=== PATIENT | female | born 1955 | race Caucasian/White ===

== ENCOUNTER 2024-06-15 08:20 | Emergency (ER) | payer MEDICARE ==
[2024-06-15 08:32] VITALS: TEMP 97.6
[2024-06-15] MEDS: TORAdol 30 mg Injection IV ONE (08:55)
[2024-06-15] MEDS ORDERED: Sodium Chloride 0.9% 1000 ML 1,000 ML ONE (08:55)
[2024-06-15] MEDS: Sodium Chloride 0.9% 1000 ML 1,000 ML IV SCH (08:55)
[2024-06-15] MEDS ORDERED: TORAdol 30 mg Injection ONE (08:55)
--- NOTE | 2024-06-15 08:56 | ERPHSYRPT ---
- History of Present Illness Time Seen by Provider: 06/15/24 08:35 Source: patient Exam Limitations: no limitations Patient Subjective Stated Complaint: Pt states "I have these cysts on my belly and my groin hurts and I burn all over. I went to [facility] and they gave me an antibiotic and toradol. I just hurt." Triage Nursing Assessment: Pt presented alert and oriented x 3, skin pwd. Pt ambulates with an upright steady giat, able to speak in clear full sentences. Pt has two abscess on chest, one on right one on left, no drainaige noted. Physician History: 73-year-old female presents to our ED for evaluation of tender skin nodules below her breasts pain in her right groin area and weight loss. Patient's sympt oms started approximately a week ago. Symptoms have been progressive. Patient went to [facility] on Friday. She was started on doxycycline. And spite of taking the antibiotics as prescribed her pain has gotten progressively worse. There have been no interval improvement in the size of the nodules. The nodules are solid not cystic. They are exquisitely tender. No signs of infec tion. Patient's weight loss is unintentional. Symptoms are mild to moderate in intensity. Pain worse with palpation. Pain improved somewhat with rest. Patient denies a history of the same. No other systemic manifestations. No chest pain or shortness of breath. No nausea vomiting or diaphoresis. No fever. No diarrhea. No rash daughter at bedside. They voiced no other complaints or concerns at this time. Portions of this note were created with voice recognition technology. There may be grammatical, spelling, punctuation or sound alike errors Timing/Duration: day(s) (1 week) Severity: moderate Modifying Factors: Improves With: other (Palpation) Associated Symptoms: denies symptoms Allergies/Adverse Reactions: No Known Drug Allergies Allergy (Verified 06/15/24 08:32) Home Medications: Doxycycline Hyclate 100 mg [Vibramycin 100 MG] 100 mg PO BID 06/15/24 [History] Ketorolac Trometh 10 mg Tab [TORAdol 10 MG TABLET] 10 mg PO DAILY PRN 06/15/24 [History] Hx Tetanus, Diphtheria Vaccination/Date Given: No Hx Influenza Vaccination/Date Given: No Hx Pneumococcal Vaccination/Date Given: No Immunizations Up to Date: No Travel Risk - International Travel Have you traveled outside of the country in past 3 weeks: No - Emerging Infectious Disease Are you exhibiting symptoms associated with any current EIDs: No - Review of Systems Constitutional: No Symptoms, No Fever, No Chills Eyes: No Symptoms Ears, Nose, & Throat: No Symptoms Respiratory: No Symptoms, No Cough, No Dyspnea Cardiac: No Symptoms, No Chest Pain, No Edema, No Syncope Abdominal/Gastrointestinal: No Symptoms, No Abdominal Pain, No Nausea, No Vomiting, No Diarrhea Genitourinary Symptoms: No Symptoms, No Dysuria Musculoskeletal: No Symptoms, No Back Pain, No Neck Pain Skin: No Symptoms, No Rash Neurological: No Symptoms, No Dizziness, No Focal Weakness, No Sensory Changes Psychological: No Symptoms Endocrine: No Symptoms Hematologic/Lymphatic: No Symptoms Immunological/Allergic: No Symptoms All Other Systems: Reviewed and Negative - Past Medical History Pertinent Past Medical History: No - Past Surgical History Past Surgical History: No - Social History Smoking Status: Current every day smoker How long have you smoked: years Exposure to second hand smoke: Yes Drug Use: none - Social Determinants of Health Will the patient participate in the screening: Declined to provide - Nursing Vital Signs Nursing Vital Signs: Initial Vital Signs Temperature 97.6 F 06/15/24 08:28 Pulse Rate 101 H 06/15/24 08:28 Respiratory Rate 20 06/15/24 08:28 Blood Pressure 159/93 06/15/24 08:28 O2 Sat by Pulse Oximetry 95 06/15/24 08:28 Pain Scale Pain Intensity 0 - Physical Exam General Appearance: no apparent distress, alert Eye Exam: PERRL/EOMI, eyes nml inspection Ears, Nose, Throat Exam: normal ENT inspection, pharynx normal, moist mucous membranes Neck Exam: normal inspection, non-tender, supple, full range of motion Respiratory Exam: normal breath sounds, lungs clear, airway intact, No respiratory distress Cardiovascular Exam: regular rate/rhythm, normal heart sounds, normal peripheral pulses Gastrointestinal/Abdomen Exam: soft, normal bowel sounds, No tenderness, No mass Back Exam: normal inspection, normal range of motion, No CVA tenderness, No vertebral tenderness Extremity Exam: normal inspection, normal range of motion, pelvis stable Neurologic Exam: alert, oriented x 3, cooperative, normal mood/affect, nml cerebellar function, nml station & gait, sensation nml, No motor deficits Skin Exam: normal color, warm, dry, other (Tender skin nodules under breast. Patient also has tenderness and pain in her right pelvic area. Overlying soft tissue intact), No rash Lymphatic Exam: No adenopathy SpO2 Interpretation: normal SpO2: 95 O2 Delivery: Room Air - Course Nursing assessment & vital signs reviewed: Yes - CT Exams Chest CT Interpretation: Tele-radiologist Report (Lung nodules including a left 9 mm lung nodule with irregular margins. Right lung mass nondisplaced cortical fracture posterior vertebral body T6-T7 T7 fracture encroaches the spinal cord. Right 1 cm anterolateral wall mass) Abdomen/Pelvis CT Interpretation: Tele-radiologist Report (Liver lesions concerning for metastatic disease possibly originating from left kidney. Right iliac wing lytic lesion right posterior acetabular lesion.) Ordered Tests: Active Orders 24 hr Category Date Time Status IV Insertion STAT Care 06/15/24 08:47 Active ABDOMEN AND PELVIS W CONTRAST [CT] Stat Exams 06/15/24 08:48 Completed CHEST WITH CONTRAST [CT] Stat Exams 06/15/24 08:49 Completed CBC W DIFF Stat Lab 06/15/24 08:30 Completed CMP Stat Lab 06/15/24 08:30 Completed CULTURE,URINE Stat Lab 06/15/24 09:18 Received TROPONIN Q4H Lab 06/15/24 08:30 Completed TROPONIN Q4H Lab 06/15/24 13:00 Ordered TROPONIN Q4H Lab 06/15/24 17:00 Ordered UA W/RFX UR CULTURE Stat Lab 06/15/24 09:18 Completed Medication Summary Generic Name Dose Route Start Last Admin Trade Name Freq PRN Reason Stop Dose Admin Sodium Chloride 1,000 mls @ 100 mls/hr 06/15/24 09:00 06/15/24 08:55 Sodium Chloride 0.9% 1000 Ml IV 07/15/24 08:59 100 mls/hr .Q10H LEW Administration Discontinued Medications Generic Name Dose Route Start Last Admin Trade Name Freq PRN Reason Stop Dose Admin Ceftriaxone Sodium 1 gm in 100 mls @ 200 mls/hr 06/15/24 10:16 06/15/24 11:39 Rocephin 1 Gm / 100 Ml Nacl IV 06/15/24 10:45 Infused STAT ONE Infusion Ceftriaxone Sodium Confirm 06/15/24 10:22 Rocephin 1 Gm / 100 Ml Nacl Administered 06/15/24 10:23 Dose 1 gm in 100 mls @ ud IV .STK-MED ONE Ketorolac Tromethamine 30 mg 06/15/24 08:47 06/15/24 08:55 Ketorolac Tromethamine 30 Mg/Ml Inj IV 06/15/24 08:48 30 mg STAT ONE Administration Ketorolac Tromethamine Confirm 06/15/24 08:55 Ketorolac Tromethamine 30 Mg/Ml Inj Administered 06/15/24 08:56 Dose 30 mg .ROUTE .STK-MED ONE Lab/Rad Data: Laboratory Result Diagrams 06/15/24 08:30 06/15/24 08:30 Laboratory Results 06/15/24 06/15/24 06/15/24 Range/Units 09:18 08:30 08:30 WBC (3.98-10.04) x10^3/uL RBC (3.93-5.22) x10^6/uL Hgb (11.2-15.7) g/dL Hct (34.1-44.9) % MCV (79.4-94.8) fL MCH (25.6-32.2) pg MCHC (32.2-35.5) g/dL RDW (11.7-14.4) % Plt Count (182-369) x10^3/uL MPV (9.4-12.3) fL Gran % (34.0-71.1) % Immature Gran % (Auto) (0.001-0.429) % Nucleat RBC Rel Count (0.00-0.2) % Eos # (Auto) (0.04-0.36) x10^3/uL Immature Gran # (Auto) (0.001-0.031) x10^3u/L Absolute Lymphs (auto) (1.18-3.74) x10^3/uL Absolute Monos (auto) (0.24-0.86) x10^3/uL Absolute Nucleated RBC (0.00-0.012) x10^3u/L Lymphocytes % (19.3-51.7) % Monocytes % (4.7-12.5) % Eosinophils % (0.7-5.8) % Basophils % (0.1-1.2) % Absolute Granulocytes (1.56-6.13) x10^3/uL Basophils # (0.01-0.08) x10^3/uL Sodium 127 L (135-145) mmol/L Potassium 4.5 (3.5-5.1) mmol/L Chloride 93 L (98-107) mmol/L Carbon Dioxide 22 (22-30) mmol/L Anion Gap 15.6 H (5-15) MEQ/L BUN 14 (7-17) mg/dL Creatinine 0.65 (0.52-1.04) mg/dL Estimated GFR 94.7 ML/MIN Glucose 110 H (74-106) mg/dL Calcium 10.2 (8.4-10.2) mg/dL Total Bilirubin 0.60 (0.2-1.3) mg/dL AST 41 H (14-36) U/L ALT 47 H (0-35) U/L Alkaline Phosphatase 101 (38-126) U/L Troponin I < 0.012 (0.000-0.033) ng/mL Serum Total Protein 7.4 (6.3-8.2) g/dL Albumin 4.4 (3.5-5.0) g/dL Urine Color Yellow (Yellow) Urine Appearance Clear (Clear) Urine pH 5.5 (4.6-8.0) Ur Specific [place] 1.015 (1.005-1.030) Urine Protein Negative (Negative) Urine Glucose (UA) Negative (Negative) mg/dL Urine Ketones Trace A (Negative) Urine Blood Trace (Negative) Urine Nitrite Negative (Negative) Urine Bilirubin Negative (Negative) Urine Urobilinogen 0.2 (0.2) mg/dL Ur Leukocyte Esterase Moderate A (Negative) U Hyaline Cast (Auto) NONE SEEN (0-2) /LPF Urine Microscopic RBC 0-2 (0-5) /HPF Urine Microscopic WBC 21-50 A (0-5) /HPF Ur Epithelial Cells Few (None Seen) /HPF Urine Bacteria None Seen (None Seen) /HPF Urine Culture Reflexed YES (NO) 06/15/24 Range/Units 08:30 WBC 15.3 H (3.98-10.04) x10^3/uL RBC 4.12 (3.93-5.22) x10^6/uL Hgb 12.5 (11.2-15.7) g/dL Hct 36.7 (34.1-44.9) % MCV 89.1 (79.4-94.8) fL MCH 30.3 (25.6-32.2) pg MCHC 34.1 (32.2-35.5) g/dL RDW 13.0 (11.7-14.4) % Plt Count 480 H (182-369) x10^3/uL MPV 8.7 L (9.4-12.3) fL Gran % 68.6 (34.0-71.1) % Immature Gran % (Auto) 0.5 H (0.001-0.429) % Nucleat RBC Rel Count 0.0 (0.00-0.2) % Eos # (Auto) 1.64 H (0.04-0.36) x10^3/uL Immature Gran # (Auto) 0.08 H (0.001-0.031) x10^3u/L Absolute Lymphs (auto) 2.19 (1.18-3.74) x10^3/uL Absolute Monos (auto) 0.85 (0.24-0.86) x10^3/uL Absolute Nucleated RBC 0.00 (0.00-0.012) x10^3u/L Lymphocytes % 14.3 L (19.3-51.7) % Monocytes % 5.6 (4.7-12.5) % Eosinophils % 10.7 H (0.7-5.8) % Basophils % 0.3 (0.1-1.2) % Absolute Granulocytes 10.47 H (1.56-6.13) x10^3/uL Basophils # 0.04 (0.01-0.08) x10^3/uL Sodium (135-145) mmol/L Potassium (3.5-5.1) mmol/L Chloride (98-107) mmol/L Carbon Dioxide (22-30) mmol/L Anion Gap (5-15) MEQ/L BUN (7-17) mg/dL Creatinine (0.52-1.04) mg/dL Estimated GFR ML/MIN Glucose (74-106) mg/dL Calcium (8.4-10.2) mg/dL Total Bilirubin (0.2-1.3) mg/dL AST (14-36) U/L ALT (0-35) U/L Alkaline Phosphatase (38-126) U/L Troponin I (0.000-0.033) ng/mL Serum Total Protein (6.3-8.2) g/dL Albumin (3.5-5.0) g/dL Urine Color (Yellow) Urine Appearance (Clear) Urine pH (4.6-8.0) Ur Specific [place] (1.005-1.030) Urine Protein (Negative) Urine Glucose (UA) (Negative) mg/dL Urine Ketones (Negative) Urine Blood (Negative) Urine Nitrite (Negative) Urine Bilirubin (Negative) Urine Urobilinogen (0.2) mg/dL Ur Leukocyte Esterase (Negative) U Hyaline Cast (Auto) (0-2) /LPF Urine Microscopic RBC (0-5) /HPF Urine Microscopic WBC (0-5) /HPF Ur Epithelial Cells (None Seen) /HPF Urine Bacteria (None Seen) /HPF Urine Culture Reflexed (NO) - Progress Progress: improved Progress Note: Spoke to ER physician at [facility] who accepts transfer at 12:25 PM. 06/15/24 12:26 6-year-old female presents emergency department for evaluation of skin nodules as well as pain to her lower abdominal area. Workup reveals a urinary tract inf ection. Patient received a dose of Rocephin in our ED. Hyponatremia observed on the workup as well. IV fluids infused. CT scan of chest abdomen and pelvis revealed metastatic disease. Primary is unclear. Patient will be transferred to [facility] for higher level of care. Plan of care discussed with patient. She agrees to transfer to [facility] for further evaluation and treatment. Patient reassessed. Pain well-controlled. Portions of this note were created with voice recognition technology. There may be grammatical, spelling, punctuation or sound alike errors Complexity of problem addressed is moderate acute complicated no critical care time. Complexity of data reviewed analyzes extensive. Test ordered chest reviewed results analyzed and correlated clinically with history and physical exam. Risk of complication at or risk of morbidity/mortality of patient m anagement is high. Patient requires transfer to higher level of care. Vital stable. Time spent to transfer patient is approximately 15 minutes. Plan of care established for shared decision making. No social determinants of health present to impede follow-up. Portions of this note were created with voice recognition technology. There may be grammatical, spelling, punctuation or sound alike errors 06/15/24 12:32 Counseled pt/family regarding: lab results, diagnosis, rad results - Departure Departure Disposition: Transfer Clinical Impression: Leukocytosis, Thrombocytosis, Hyponatremia, UTI (urinary tract infection), Metastatic cancer, Unintentional weight loss Condition: Stable Critical Care Time: No Referrals: DOCTOR,NO FAMILY [Primary Care Provider] - Follow up/PCP as directed
[2024-06-15 09:03] LABS: Absolute Neutrophil Ct (ANC) 10.47 x10^3/uL (1.56-6.13); BASOPHIL % 0.3 % (0.1-1.2); Basophil (Absolute #) 0.04 x10^3/uL (0.01-0.08); Eosinophil % 10.7 % (0.7-5.8); Eosinophil (Absolute #) 1.64 x10^3/uL (0.04-0.36); Hematocrit 36.7 % (34.1-44.9); Hemoglobin 12.5 g/dL (11.2-15.7); IMMATURE GRAN # 0.08 x10^3u/L (0.001-0.031); IMMATURE GRAN % 0.5 % (0.001-0.429); Lymphocyte (Absolute #) 2.19 x10^3/uL (1.18-3.74); Lymphocytes % 14.3 % (19.3-51.7); Mean Cell Volume 89.1 fL (79.4-94.8); Mean Corpuscular Hemoglobin 30.3 pg (25.6-32.2); Mean Corpuscular Hgb Concent. 34.1 g/dL (32.2-35.5); Mean Platelet Volume 8.7 fL (9.4-12.3); Monocyte (Absolute #) 0.85 x10^3/uL (0.24-0.86); Monocytes % 5.6 % (4.7-12.5); Neutrophil % 68.6 % (34.0-71.1); Platelet Count 480 x10^3/uL (182-369); Red Blood Count 4.12 x10^6/uL (3.93-5.22); White Blood Count 15.3 x10^3/uL (3.98-10.04)
[2024-06-15 09:20] LABS: ALBUMIN 4.4 g/dL (3.5-5.0); ANION GAP 15.6 MEQ/L (5-15); BILIRUBIN,TOTAL 0.6 mg/dL (0.2-1.3); Calcium 10.2 mg/dL (8.4-10.2); Creatinine 1 0.65 mg/dL (0.52-1.04); EST GLOMERULAR FILTRATION RATE 94.7 ML/MIN; Potassium 4.5 mmol/L (3.5-5.1); Total Protein 7.4 g/dL (6.3-8.2)
[2024-06-15 09:30] LABS: Appearance Clear (Clear); Bacteria None Seen /HPF (None Seen); Bilirubin Negative (Negative); Blood Trace (Negative); Epithelial Cells Few /HPF (None Seen); Glucose, Urine Negative (Negative); Hyaline Casts NONE SEEN /LPF (0-2); Ketones Trace (Negative); Leukocyte Esterase Moderate (Negative); Nitrite Negative (Negative); Ph 5.5 (4.6-8.0); Protein,Urine Dip Negative (Negative); RBC 0-2 /HPF (0-5); Specific Gravity 1.015 (1.005-1.030); Urobilinogen 0.2 mg/dL (0.2); WBC 21-50 /HPF (0-5)
[2024-06-15] MEDS ORDERED: ROCEPHIN 1 GM / 100 ML NaCl 1 GM/100 ML IVPB IV ONE (10:22)
[2024-06-15] MEDS: ROCEPHIN 1 GM / 100 ML NaCl 1 GM/100 ML IVPB IV ONE (10:23)
[2024-06-15 10:29] VITALS: RESP 18
--- NOTE | 2024-06-15 11:41 | XRAY ---
Indication: Chest pain. Multiple contiguous axial images obtained through the chest using 80 cc Isovue 370 contrast. Comparison: None. Lungs demonstrates mild diffuse pulmonary emphysema and mild bilateral dependent atelectasis. There are numerous tiny/small bilateral noncalcified nodules. Largest nodule left lower lobe measuring 9 mm and demonstrates irregular margins. Multiplicity and bilaterality concerning for metastasis. Right lung base demonstrates subpulmonic rim enhancing mass at least 7.2 x 4.4 x 3.0 cm with central fluid attenuation suggesting tissue necrosis. Incidental right middle lobe 1.2 cm calcified granuloma. Also medial right middle lobe and lesser degree lingula subsegmental atelectasis/scarring. No infiltrate or effusion. Heart not enlarged. Aorta mildly arteriosclerotic without aneurysm/dissection. Small subcarinal calcified node. No pathologic mediastinal/hilar lymphadenopathy. Bony thorax intact with osteopenia and minimal/mild degenerative changes throughout spine. Also mildly displaced cortical fracture posterior vertebral bodies T6/T7 with radiolucency concerning for pathologic fractures. T7 fracture encroaches on spinal canal. 1 cm round soft tissue mass right anterior lateral chest wall mass between 6th/7th ribs possibly adenopathy. CT abdomen/pelvis reported separately. Impression: 1. Numerous bilateral noncalcified nodules worrisome for metastasis. Right lower lobe subpulmonic rim enhancing mass with central tissue necrosis presumed related. 2. Mild displaced cortical fractures posterior vertebral bodies T6/T7 with radiolucencies favoring pathologic fractures. 3. 1 cm right anterior chest wall soft tissue mass, possibly adenopathy. 4. Chronic findings including pulmonary emphysema, atelectasis/scarring, arteriosclerotic disease, chronic bony findings, and old granulomatous disease.
--- NOTE | 2024-06-15 11:49 | XRAY ---
Indication: Abdomen pain. Multiple contiguous axial images obtained through the abdomen and pelvis using 80 cc Isovue 370 contrast. Comparison: None CT chest reported separately. Noncontrasted stomach and bowel loops appear nonobstructed with normal appendix. Mild diffuse scattered colonic fecal debris throughout including mild rectal fecal impaction. Right lobe liver demonstrates at least 3 rim-enhancing hypodense lesions worrisome for metastasis. Largest 2.3 cm. Incidental 2.5 cm splenic cyst and nonobstructing right renal punctate calculus. 1.3 x 1.0 x 1.1 cm soft tissue mass lateral to left mid kidney. Remaining liver, gallbladder, pancreas, spleen, adrenal glands, kidneys, ureters, bladder, and uterus are unremarkable. Extensive scattered aortoiliac calcifications been. No AAA or pathologic retroperitoneal lymphadenopathy. Osseous structures intact with osteopenia and mild degenerative changes throughout spine. Right iliac wing demonstrates 2.6 cm expansile lytic lesion worrisome for metastasis. Smaller lytic lesion seen posterior right acetabulum. No pathologic inguinal lymphadenopathy. Impression: 1. Hepatic and bony metastasis as detailed. 2. Small soft tissue mass lateral to left kidney. Rule out primary versus metastatic malignancy. 3. Incidental mild diffuse fecal stasis with rectal impaction. 4. Chronic findings including splenic cyst, nonobstructing right renal punctate calculus, arteriosclerotic disease, osteopenia, and degenerative spondylosis.
[2024-06-15 13:49] VITALS: BP 132/70; PULSE 90; O2SAT 93
== END 2024-06-15 13:50 | disposition home or self-care (01) ==
LOC: ED 08:20
DX: D72.829 Elevated white blood cell count, unspecified (principal); D75.839 Thrombocytosis, unspecified; E87.1 Hypo-osmolality and hyponatremia; N39.0 Urinary tract infection, site not specified; C78.7 Secondary malignant neoplasm of liver and intrahepatic bile duct; R63.4 Abnormal weight loss; R22.2 Localized swelling, mass and lump, trunk; Z79.899 Other long term (current) drug therapy; Z72.0 Tobacco use
CPT/HCPCS: 36415; 71260; 74177; 80053; 81001; 84484; 85025; 87086; 96365; 96374; 99285; J0696; J1885